=== PATIENT | male | born 1990 | race Caucasian/White ===

== ENCOUNTER 2018-03-19 17:06 | Emergency (ER) | payer OTHER ==
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
[2018-03-19] MEDS ORDERED: SKIN ADHESIVE (DERMABOND) 1 EACH TP ONE (17:58)
[2018-03-19 18:16] VITALS: BP 118/78
== END 2018-03-19 18:16 | disposition home or self-care (01) ==
PROC: 09QKXZZ Repair Nasal Mucosa and Soft Tissue, External Approach (ICD-10-PCS; principal; 2018-03-19)
DX: S01.21XA Laceration without foreign body of nose, initial encounter (principal); S09.90XA Unspecified injury of head, initial encounter; V00.142A Scooter (nonmotorized) colliding with stationary object, initial encounter; Y92.9 Unspecified place or not applicable; Y93.9 Activity, unspecified; Y99.9 Unspecified external cause status